=== PATIENT | female | born 1985 | race American Indian/Alaskan Native ===

== ENCOUNTER 2021-10-11 15:26 | Emergency (ER) | payer MEDICAID ==
--- NOTE | 2021-10-11 18:28 | Emergency Department Report ---
ED ENT HPI - General Chief complaint: Earache Stated complaint: LEFT EAR PAIN AND DRAINAGE Time Seen by Provider: 10/11/21 18:22 Source: patient Mode of arrival: Ambulatory Limitations: No Limitations - History of Present Illness Initial comments: Patient is a 36-year-old female presents emergency room complaints of left-sided ear pain that began 2 days ago. She has associated drainage from the ear and her hearing feels muffled but she still can hear from the ear. She denies any bleeding or trauma. She denies any fever or any sick contacts. No allergies to medications. No past medical history. - Related Data Previous Rx's Medication Instructions Recorded Last Taken Type Cyclobenzaprine [Flexeril 10mg] 10 mg PO TID PRN #20 tablet 05/05/14 Unknown Rx Ibuprofen [Motrin] 800 mg PO TID #30 tablet 05/05/14 Unknown Rx traMADoL [Ultram 50 MG tab] 50 mg PO Q6HR PRN #20 tablet 05/05/14 Unknown Rx HYDROcodone/APAP 5-325 [[place] 1 each PO Q6HR PRN #20 tablet 05/25/14 Unknown Rx 5/325] Ondansetron [Zofran] 4 mg PO Q6HR PRN #20 tablet 05/25/14 Unknown Rx Sulfamethoxazole/Trimethoprim 1 each PO BID #14 tablet 05/25/14 Unknown Rx [Bactrim Ds] Ofloxacin 0.3% [Floxin 0.3% Otic] 10 drops DAILY 10 Days #1 bottle 10/11/21 Unknown Rx Allergies Allergy/AdvReac Type Severity Reaction Status Date / Time No Known Allergies Allergy Verified 10/11/21 16:27 ED Dental HPI - General Chief complaint: Earache Stated complaint: LEFT EAR PAIN AND DRAINAGE Time Seen by Provider: 10/11/21 18:22 Source: patient Mode of arrival: Ambulatory Limitations: No Limitations - Related Data Previous Rx's Medication Instructions Recorded Last Taken Type Cyclobenzaprine [Flexeril 10mg] 10 mg PO TID PRN #20 tablet 05/05/14 Unknown Rx Ibuprofen [Motrin] 800 mg PO TID #30 tablet 05/05/14 Unknown Rx traMADoL [Ultram 50 MG tab] 50 mg PO Q6HR PRN #20 tablet 05/05/14 Unknown Rx HYDROcodone/APAP 5-325 [[place] 1 each PO Q6HR PRN #20 tablet 05/25/14 Unknown Rx 5/325] Ondansetron [Zofran] 4 mg PO Q6HR PRN #20 tablet 05/25/14 Unknown Rx Sulfamethoxazole/Trimethoprim 1 each PO BID #14 tablet 05/25/14 Unknown Rx [Bactrim Ds] Ofloxacin 0.3% [Floxin 0.3% Otic] 10 drops DAILY 10 Days #1 bottle 10/11/21 Unknown Rx Allergies Allergy/AdvReac Type Severity Reaction Status Date / Time No Known Allergies Allergy Verified 10/11/21 16:27 ED Review of Systems ROS: Stated complaint: LEFT EAR PAIN AND DRAINAGE Other details as noted in HPI Comment: All other systems reviewed and negative ED Past Medical Hx - Past Medical History Previous Medical History?: No - Surgical History Past Surgical History?: No Additional Surgical History: (01/20/14) - Social History Smoking Status: Never Smoker Substance Use Type: None - Medications Home Medications: Home Medications Medication Instructions Recorded Confirmed Last Taken Type Cyclobenzaprine [Flexeril 10mg] 10 mg PO TID PRN #20 tablet 05/05/14 Unknown Rx Ibuprofen [Motrin] 800 mg PO TID #30 tablet 05/05/14 Unknown Rx traMADoL [Ultram 50 MG tab] 50 mg PO Q6HR PRN #20 tablet 05/05/14 Unknown Rx HYDROcodone/APAP 5-325 [[place] 1 each PO Q6HR PRN #20 tablet 05/25/14 Unknown Rx 5/325] Ondansetron [Zofran] 4 mg PO Q6HR PRN #20 tablet 05/25/14 Unknown Rx Sulfamethoxazole/Trimethoprim 1 each PO BID #14 tablet 05/25/14 Unknown Rx [Bactrim Ds] Ofloxacin 0.3% [Floxin 0.3% Otic] 10 drops DAILY 10 Days #1 bottle 10/11/21 Unknown Rx ED Physical Exam - General Limitations: No Limitations General appearance: alert, in no apparent distress - Head Head exam: Present: atraumatic, normocephalic - Eye Eye exam: Present: normal appearance - ENT ENT exam: Present: mucous membranes moist, other (right TM and canal are normal in appearance, left canal is erythematous with purulent drainage and scaling, only able to visualize small portion of the TM which appears stable, no mastoid ttp) - Neurological Exam Neurological exam: Present: alert, oriented X3 - Psychiatric Psychiatric exam: Present: normal affect, normal mood - Skin Skin exam: Present: warm, dry, intact ED Course Vital Signs 10/11/21 10/11/21 16:24 18:55 Temperature 98.7 F Pulse Rate 83 70 Respiratory 16 15 Rate Blood Pressure 130/79 Blood Pressure 126/80 [Left] O2 Sat by Pulse 100 99 Oximetry ED Medical Decision Making - Medical Decision Making Patient is a 36-year-old female presents emergency room complaints of left-sided ear pain that began 2 days ago. She has associated drainage from the ear and her hearing feels muffled but she still can hear from the ear. She denies any bleeding or trauma. She denies any fever or any sick contacts. No allergies to medications. No past medical history. Vitals are stable. On exam:right TM and canal are normal in appearance, left canal is erythematous with purulent drainage and scaling, only able to visualize small portion of the TM which appears stable, no mastoid ttp. Examination appears consistent with otitis externa. Given prescription for medication. Advised patient Please use med ication as prescribed. If symptoms are not improving please follow-up with ear nose and throat doctor. Return to emergency room for any new or worsening symptoms. Critical care attestation.: If time is entered above; I have spent that time in minutes in the direct care of this critically ill patient, excluding procedure time. ED Disposition Clinical Impression: Otitis externa Qualifiers: Otitis externa type: unspecified type Chronicity: acute Laterality: left Qualified Code(s): H60.502 - Unspecified acute noninfective otitis externa, left ear Disposition: 01 HOME / SELF CARE / HOMELESS Is pt being admited?: No Does the pt Need Aspirin: No Condition: Stable Instructions: Otitis Externa, [id number] Additional Instructions: Please use medication as prescribed. If symptoms are not improving please follow-up with ear nose and throat doctor. Return to emergency room for any new or worsening symptoms. Prescriptions: Ofloxacin 0.3% [Floxin 0.3% Otic] 10 drops DAILY 10 Days #1 bottle Referrals: LELA LEWIS MD [Staff Physician] - 3-5 Days PREETHI KAUFMAN MD [Referring] - 3-5 Days Time of Disposition: 18:27 Print Language: FRISIAN
[2021-10-11 18:56] VITALS: BP 126/80
== END 2021-10-11 18:55 | disposition home or self-care (01) ==
LOC: ED 15:26
DX: H60.92 Unspecified otitis externa, left ear (principal); Z98.890 Other specified postprocedural states
CPT/HCPCS: 99282